=== PATIENT | female | born 1945 | race Caucasian/White ===

== ENCOUNTER → 2024-09-07 | Outpatient (CLI) | payer MEDICARE ==
--- NOTE | 2024-09-07 16:32 | US ---
EXAMINATION TYPE: US kidneys/renal and bladder DATE OF EXAM: 09/07/2024 COMPARISON: NONE CLINICAL INDICATION: Female, 79 years old with history of N20.0 KIDNEY STONE; Pain hx of stones TECHNIQUE: Grayscale and color Doppler imaging of the bilateral kidneys and urinary bladder: FINDINGS: EXAM MEASUREMENTS: Right Kidney: 10.2 x 4.3 x 3.6 cm Left Kidney: 10.7 x 5.1 x 5.2 cm Right Kidney: 1.1 cm echogenic area upper pole. Anechoic area seen 1.5 x 1.7 x 1.6 cm. Left Kidney: Anechoic area mid pole 5.1 x 5.5 x 6.1 cm. Bladder: anechoic Bilateral Jets seen: no No hydronephrosis. Renal cortical thickness and echogenicity maintained. No bladder wall thickening o r calculi.. IMPRESSION: 1. There is a 1.1 cm nonobstructing right renal calculus. 2. Bilateral renal cysts. [facility], , 09/07/2024 4:30 PM
== END | disposition home or self-care (01) ==
LOC: RADUSWWP 15:58
PROVIDERS: ATTEND Internal Medicine Geriatric Medicine
CPT/HCPCS: 76770